=== PATIENT | female | born 1980 | race Caucasian/White ===

== ENCOUNTER 2018-06-04 01:02 | Inpatient (IN) | payer BC, OTHER ==
[2018-06-04] VITALS (14 sets, daily range): BP systolic 91–116; BP diastolic 46–64
[~2018-06-04] VITALS: Ht 152.4 cm; Wt 54.0 kg
[2018-06-04] MEDS ORDERED: ONDA4TAB7 PO (01:22)
--- NOTE | 2018-06-04 01:24 | ED.ADGEN ---
Past History Past Medical History: Diabetes Past Surgical History: Alcohol Use: None Drug Use: None Adult General Chief Complaint Chief Complaint vomiting HPI HPI 38 years old female who is insulin-dependent diabetic presented to the emergency department with vomiting started yesterday her son was diagnosed with influenza, she stated that 24 hours after he was diagnosed she started vomiting no diarrhea no fever no chills complaining of generalized body ache Review of Systems Review of Systems Constitutional: Denies fever or chills [] Eyes: Denies change in visual acuity, redness, or eye pain [] HENT: Denies nasal congestion or sore throat [] Respiratory: Denies cough or shortness of breath [] Cardiovascular: No additional information not addressed in HPI [] GI: Denies abdominal pain, bloody stools or diarrhea [] : Denies dysuria or hematuria [] All other systems were reviewed and found to be within normal limits, except as documented in this note. Current Medications Current Medications Current Medications Medications (Trade) Dose Ordered Sig/Fox Start Time Stop Time Status Last Admin Dose Admin Insulin Glargine (Lantus) 300 units STK-MED ONCE 06/04/18 02:07 06/04/18 02:08 DC Insulin Human Regular (HumuLIN R VIAL) 10 unit 1X ONCE 06/04/18 01:45 06/04/18 01:47 DC 06/04/18 01:40 10 UNIT Ondansetron HCl (Zofran) 4 mg 1X ONCE 06/04/18 02:00 06/04/18 02:01 DC 06/04/18 01:24 4 MG Sodium Chloride 1,000 ml @ 1,000 mls/hr 1X ONCE 06/04/18 02:00 06/04/18 02:59 06/04/18 01:26 1,000 MLS/HR Allergies Allergies Allergies Coded Allergies Type Severity Reaction Last Updated Verified ciprofloxacin Allergy Intermediate 06/04/18 Yes Physical Exam Physical Exam Constitutional: Well developed, well nourished, no acute distress, non-toxic appearance. [] HENT: Normocephalic, atraumatic, bilateral external ears normal, oropharynx moist, no oral exudates, nose normal. [] Eyes: PERRLA, EOMI, conjunctiva normal, no discharge. [] Neck: Normal range of motion, no tenderness, supple, no stridor. [] Cardiovascular:Heart rate regular rhythm, no murmur [] Lungs & Thorax: Bilateral breath sounds clear to auscultation [] Abdomen: Bowel sounds normal, soft, no tenderness, no masses, no pulsatile masses. [] Skin: Warm, dry, no erythema, no rash. [] Current Patient Data Vital Signs Vital Signs Date Time Temp Pulse Resp B/P (MAP) Pulse Ox O2 Delivery O2 Flow Rate FiO2 06/04/18 02:04 98 26 145/89 (107) 98 Room Air 06/04/18 01:13 97.2 Lab Results Laboratory Tests Test 06/04/18 01:22 06/04/18 01:30 06/04/18 02:23 Glucose (Fingerstick) 585 mg/dL (70-99) *H 486 mg/dL (70-99) H White Blood Count 12.2 x10^3/uL (4.0-11.0) H Red Blood Count 5.63 x10^6/uL (3.50-5.40) H Hemoglobin 16.7 g/dL (12.0-15.5) H Hematocrit 50.5 % (36.0-47.0) H Mean Corpuscular Volume 90 fL (79-100) Mean Corpuscular Hemoglobin 30 pg (25-35) Mean Corpuscular Hemoglobin Concent 33 g/dL (31-37) Red Cell Distribution Width 13.4 % (11.5-14.5) Platelet Count 375 x10^3/uL (140-400) Sodium Level 136 mmol/L (136-145) Potassium Level 5.1 mmol/L (3.5-5.1) Chloride Level 96 mmol/L (98-107) L Carbon Dioxide Level 8 mmol/L (21-32) *L Anion Gap 32 (6-14) H Blood Urea Nitrogen 23 mg/dL (7-20) H Creatinine 1.5 mg/dL (0.6-1.0) H Estimated GFR (Cockcroft-Gault) 38.7 BUN/Creatinine Ratio 15 (6-20) Glucose Level 596 mg/dL (70-99) *H Calcium Level 9.4 mg/dL (8.5-10.1) Total Bilirubin 0.6 mg/dL (0.2-1.0) Aspartate Amino Transferase (AST) 18 U/L (15-37) Alanine Aminotransferase (ALT) 25 U/L (14-59) Alkaline Phosphatase 118 U/L (46-116) H Total Protein 8.7 g/dL (6.4-8.2) H Albumin 4.5 g/dL (3.4-5.0) Albumin/Globulin Ratio 1.1 (1.0-1.7) EKG EKG [] Radiology/Procedures Radiology/Procedures [] Course & Med Decision Making Course & Med Decision Making Pertinent Labs and Imaging studies reviewed. (See chart for details) [] Final Impression Final Impression [] Problems: (1) Vomiting Qualifiers: Qualified Codes: R11.2 - Nausea with vomiting, unspecified (2) DKA (diabetic ketoacidoses) Qualifiers: Qualified Codes: E11.10 - Type 2 diabetes mellitus with ketoacidosis without coma Dragon Disclaimer Dragon Disclaimer This electronic medical record was generated, in whole or in part, using a voice recognition dictation system. JAZZMINE PIERRE MD Jun 04, 2018 01:24
[2018-06-04] MEDS ORDERED: INSULIN REGULAR 100 UNIT/ML 3ML VIAL. IV ONE (01:45)
[2018-06-04] MEDS ORDERED: ONDANSETRON PF 4 MG/2 ML VIAL. IV ONE (02:00)
[2018-06-04] MEDS ORDERED: IV NORMAL SALINE 1,000ML 1,000 ML IV ONE ×3 (02:00→03:00)
[2018-06-04] MEDS ORDERED: INSULIN GLARGINE 300 UNITS/3 ML INSULN.PEN. SQ ONE (02:07)
[2018-06-04 02:09] LABS: HEMATOCRIT 50.5 % (36.0-47.0); HEMOGLOBIN 16.7 g/dL (12.0-15.5); RED BLOOD COUNT 5.63 x10^6/uL (3.50-5.40); RED CELL DISTRIBUTION WIDTH 13.4 % (11.5-14.5); WHITE BLOOD COUNT 12.2 x10^3/uL (4.0-11.0)
[2018-06-04 02:17] LABS: ALBUMIN 4.5 g/dL (3.4-5.0); ALBUMIN/GLOBULIN RATIO 1.1 (1.0-1.7); CALCIUM 9.4 mg/dL (8.5-10.1); CREATININE 1.5 mg/dL (0.6-1.0); GFR 38.7; POTASSIUM 5.1 mmol/L (3.5-5.1); TOTAL BILIRUBIN 0.6 mg/dL (0.2-1.0); TOTAL PROTEIN 8.7 g/dL (6.4-8.2)
[2018-06-04 02:35] LABS: INFLUENZA A PATIENT POSITIVE (NEGATIVE); INFLUENZA B PATIENT NEGATIVE (NEGATIVE)
[2018-06-04] MEDS ORDERED: 0.9 % SODIUM CHLORIDE 150ML 150 ML ONE (02:39)
[2018-06-04] MEDS: ONDANSETRON PF 4 MG/2 ML VIAL. IV PRN ×2 (02:54→08:38)
[2018-06-04] MEDS ORDERED: INSULIN REGULAR VIAL 150 UNIT in 0.9 % SODIUM CHLORIDE 150ML 150 ML IV ONE (03:00)
[2018-06-04] MEDS ORDERED: IV NORMAL SALINE 1,000ML 1,000 ML IV SCH (04:00)
[2018-06-04 04:54] LABS: BILIRUBIN,URINE NEG (NEG); CLARITY,URINE CLEAR; COLOR,URINE YELLOW; GLUCOSE,URINE 500 mg/dL (NEG)
[2018-06-04 04:55] LABS: BACTERIA,URINE 0 /HPF (0-FEW); NITRITE,URINE NEG (NEG); SQUAMOUS EPITHELIAL CELL,UR OCC /LPF; UROBILINOGEN,URINE 0.2 mg/dL (0.2 mg/dL); WBC,URINE OCC /HPF (0-4)
[2018-06-04] MEDS ORDERED: INSU100I32 SQ (05:44)
[2018-06-04] MEDS ORDERED: METF500T9 PO (05:44)
[2018-06-04 07:34] LABS: ALBUMIN 3.1 g/dL (3.4-5.0); ALBUMIN/GLOBULIN RATIO 1.1 (1.0-1.7); CALCIUM 7.6 mg/dL (8.5-10.1); CREATININE 0.8 mg/dL (0.6-1.0); GFR 79.9; POTASSIUM 3.8 mmol/L (3.5-5.1); TOTAL BILIRUBIN 0.3 mg/dL (0.2-1.0); TOTAL PROTEIN 5.9 g/dL (6.4-8.2)
[2018-06-04 07:38] LABS: BASO % 0 % (0-3); EOS % 0 % (0-3); HEMOGLOBIN 13.1 g/dL (12.0-15.5); LYMPH % 11 % (24-48); MEAN CORPUSCULAR HEMOGLOBIN 30 pg (25-35); MEAN CORPUSCULAR HGB CONC 35 g/dL (31-37); MEAN CORPUSCULAR VOLUME 85 fL (79-100); MONO # 0.6 x10^3/uL (0.0-1.1); MONO % 8 % (0-9); NEUT # 6.9 x10^3uL (1.8-7.7); NEUT % 81 % (31-73); PLATELET COUNT 236 x10^3/uL (140-400); RED BLOOD COUNT 4.38 x10^6/uL (3.50-5.40); RED CELL DISTRIBUTION WIDTH 12.8 % (11.5-14.5); WHITE BLOOD COUNT 8.5 x10^3/uL (4.0-11.0)
[2018-06-04] MEDS ORDERED: POTASSIUM CL 20MEQ D5-0.45NACL 1,000 ML IV SCH (08:00)
[2018-06-04] MEDS: ACETAMINOPHEN 325 MG TABLET PO PRN ×2 (08:38→18:36)
[2018-06-04] MEDS ORDERED: IPRATRPIUM/ALBUTEROL 0.5/2.5MG 3 ML NEBU. ONE (09:10)
[2018-06-04] MEDS ORDERED: IPRATRPIUM/ALBUTEROL 0.5/2.5MG 3 ML NEBU. NEB SCH (09:15)
[2018-06-04 14:32] LABS: CREATININE 0.8 mg/dL (0.6-1.0); GFR 79.9; POTASSIUM 3.3 mmol/L (3.5-5.1)
[2018-06-04] MEDS: POTASSIUM CL 40MEQ D5-0.45NACL 1,000 ML IV SCH ×2 (15:12→22:46)
--- NOTE | 2018-06-04 19:11 | HP ---
ADMIT DATE: 06/04/2018 HISTORY OF PRESENT ILLNESS: The patient is a 38-year-old female patient with diabetes mellitus about 3 years ago, started on oral hypoglycemic for about 6 months and then started on insulin, who came to the Emergency Room, complaining of recurrent bouts of nausea and vomiting. Her son was diagnosed with influenza. She stated ____ she started vomiting; however, she denied any diarrhea, abdominal pain, but did complain of generalized aches and pains. She was investigated in the Emergency Room, was found to be in diabetic ketoacidosis. Her blood sugar was 596 with a anion gap of 32. She has also acute kidney injury. Creatinine is 1.5. She was admitted, her influenza A was positive and B was negative. Urinalysis showed a large amount of glucose and large amount of ketones; however, it was negative for nitrite and leukocyte esterase. There are no wbc's and no bacteria and she was admitted the diabetic ketoacidosis and influenza A. She was started on IV fluid and insulin drip and she will be started also on Tamiflu. We will continue to monitor her electrolytes as well as blood sugar and we will resume her medication once she is stabilized. PAST SURGICAL HISTORY: Significant for one normal vaginal delivery and one . ALLERGIES: She is allergic TO CIPRO AND FLAGYL. MEDICATIONS: She is currently on metformin 1000 mg once a day at bedtime and Basaglar KwikPen 25 units subcutaneously. She is also ondansetron for Zofran 4 mg every 8 hours. FAMILY HISTORY: She has one sister older and healthy. Her father is still alive at age 73, has diabetes mellitus and mother at age 70 because of bone cancer. SOCIAL HISTORY: She is , has a son and a daughter. She never smoked, does not drink alcohol or recreational drugs. 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 PHYSICAL EXAMINATION: GENERAL: On arrival to the Emergency Room, she was clearly tachypneic, but no pallor, jaundice, cyanosis, or thyromegaly. No jugular venous distension. No limb edema. VITAL SIGNS: Her heart rate was 107, blood pressure was 145/89, temperature was 97.2, respiratory rate 26 and oxygen saturation was 98%. HEAD, EYES, EARS, NOSE, AND THROAT: Showed normocephalic, atraumatic. NECK: Supple. HEART: Showed normal first and second sounds. No gallop, rub or murmur. CHEST: Clear to auscultation. No crepitation or rhonchi. ABDOMEN: Distended, soft, nontender. NEUROLOGIC: She was awake, alert, responding appropriately. Cranial nerves intact. EXTREMITIES: She moves extremities without difficulty. LABORATORY DATA: On admission showed that her white cell count was 12,200, hemoglobin 16.7, hematocrit 50.5, MCV 90 and platelet count 375,000. Her chemistry showed a serum sodium of 136, potassium 5.1, chloride 96, bicarbonate 8, anion gap of 32, BUN 23, creatinine 1.5, estimated GFR was 38 mL per minute. Her glucose 596, calcium was 9.4. Total bilirubin, AST, ALT were normal. Alkaline phosphatase slightly elevated. Total protein was 8.7, albumin was 4.5. Urinalysis showed the urine was yellow, clear with a pH of 5, specific gravity of 1.020. Small amount of protein, large amount of glucose, large amount of ketones, large amount of blood, negative for nitrite and leukocyte esterase. There were only 6-10 rbc's, no wbc's, and no bacteria. Her nasal screen for MRSA was negative; however, her influenza A was positive and her influenza B was negative. ADMISSION DIAGNOSES: Influenza A, Diabetic ketoacidosis, acute kidney injury, and hyperkalemia. ARCHANA YOUNG MD DR: ALICIA/maicol JOB#: [id number] / [id number]
[2018-06-04] MEDS: OSELTAMIVIR 75 MG CAPSULE PO SCH (20:38)
[2018-06-04] MEDS ORDERED: INSULIN GLARGINE 300 UNITS/3 ML INSULN.PEN. SQ SCH (21:00)
[2018-06-04] MEDS ORDERED: INSULIN REGULAR VIAL 150 UNIT in 0.9 % SODIUM CHLORIDE 150ML 150 ML IV PRN (21:15)
[2018-06-05 01:17] VITALS: BP 100/56
[2018-06-05 03:03] VITALS: BP 104/60
[2018-06-05 04:51] VITALS: BP 107/68
[2018-06-05] MEDS ORDERED: ONDANSETRON PF 4 MG/2 ML VIAL. IV PRN (05:15)
[2018-06-05] MEDS ORDERED: ACETAMINOPHEN 325 MG TABLET PO PRN (05:15)
[2018-06-05] MEDS: POTASSIUM CL 40MEQ D5-0.45NACL 1,000 ML IV SCH (05:47)
[2018-06-05 06:34] LABS: BASO % 0 % (0-3); EOS % 0 % (0-3); HEMATOCRIT 33.8 % (36.0-47.0); HEMOGLOBIN 11.8 g/dL (12.0-15.5); LYMPH # 0.7 x10^3/uL (1.0-4.8); LYMPH % 9 % (24-48); MEAN CORPUSCULAR HEMOGLOBIN 30 pg (25-35); MEAN CORPUSCULAR HGB CONC 35 g/dL (31-37); MEAN CORPUSCULAR VOLUME 85 fL (79-100); MONO # 0.5 x10^3/uL (0.0-1.1); MONO % 7 % (0-9); NEUT # 6.3 x10^3uL (1.8-7.7); NEUT % 84 % (31-73); PLATELET COUNT 221 x10^3/uL (140-400); RED BLOOD COUNT 3.99 x10^6/uL (3.50-5.40); RED CELL DISTRIBUTION WIDTH 13.2 % (11.5-14.5); WHITE BLOOD COUNT 7.5 x10^3/uL (4.0-11.0)
[2018-06-05 06:45] LABS: ALBUMIN 2.8 g/dL (3.4-5.0); CREATININE 0.6 mg/dL (0.6-1.0); GFR 111.3; POTASSIUM 3.9 mmol/L (3.5-5.1); TOTAL BILIRUBIN 0.3 mg/dL (0.2-1.0); TOTAL PROTEIN 5.5 g/dL (6.4-8.2)
[2018-06-05 07:03] VITALS: BP 100/63
[2018-06-05] MEDS ORDERED: INSULIN LISPRO 300 UNITS/3 ML INSULN.PEN. SQ PRN (07:30)
[2018-06-05] MEDS ORDERED: DEXTROSE 50% 25 GM / 50ML DISP.SYRIN. IV PRN (07:30)
[2018-06-05] MEDS ORDERED: IV NORMAL SALINE 1,000ML 1,000 ML IV SCH (07:45)
[2018-06-05] MEDS: OSELTAMIVIR 75 MG CAPSULE PO SCH (08:00)
[2018-06-05 10:45] VITALS: BP 107/68
--- NOTE | 2018-06-05 14:39 | DS ---
DATE OF DISCHARGE: 06/05/2018 HOSPITAL COURSE: The patient is a 38-year-old female patient, who was admitted yesterday with a complaint of recurrent bouts of nausea, vomiting. She was apparently seen in the Emergency Room and was found to be extremely hyperglycemic with a very high anion gap of 32, her creatinine has risen to 1.5 mg/dL. Her influenza A was positive, B was negative. Urinalysis showed large amount of glucose, large amount of ketones; however, was negative for nitrite and leukocyte esterase. The patient was started on IV fluid and insulin drip. The patient did very well, has had no further episodes of nausea and vomiting. Her blood sugar has stabilized. Her white cell count came down from 12,000-7500, her anion gap has also improved from 32 down to 11. She was able to eat and drink, and keep all her foods in without difficulty and as she stabilized, the decision was made to discharge her home to continue on her insulin at bedtime as well as metformin and we advised her to continue also on Humalog before meals. We provided her with insulin sliding scale and a prescription for Humalog insulin. PHYSICAL EXAMINATION: GENERAL: On examining her this afternoon, she looked well and was clearly in no apparent respiratory distress. No pallor, jaundice, cyanosis or thyromegaly. No jugular venous distension. No limb edema. VITAL SIGNS: Her heart rate was 92, blood pressure was 100/63, temperature was 99.8, respiratory rate was 18 and oxygen saturation was 98%. The rest of clinical examination is stable, has not really changed. Her intake over the last 24 hours was 2400, no output was recorded. LABORATORY DATA: Showed a serum sodium 138, potassium 3.9, chloride 107, bicarbonate 20, anion gap of 11, BUN 4, creatinine 0.6, estimated GFR was 111. Her blood glucose was 238, calcium was 8. Total bilirubin, AST, ALT, alkaline phosphatase were normal. Total protein was 5.5, albumin was 2.8. White cell count was down to 7500, hemoglobin 12, hematocrit 34, MCV 85 and platelet count of 221,000. DISCHARGE MEDICATIONS: She was discharged home to continue Basaglar KwikPen insulin 25 units at bedtime. She is on metformin 1000 mg at bedtime, ondansetron 4 mg every 8 hours. She was also started on Humalog insulin as insulin sliding scale before meals. She was given an insulin sliding scale to use. FINAL DISCHARGE DIAGNOSES: 1. Influenza A. 2. Diabetic ketoacidosis. 3. Type 1 diabetes mellitus. ARCHANA YOUNG MD DR: ALICIA/maicol JOB#: [id number] / [id number]
[2018-06-05] MEDS ORDERED: INSULIN GLARGINE 300 UNITS/3 ML INSULN.PEN. SQ SCH (21:00)
[2018-06-05] MEDS ORDERED: metFORMIN XR 500 MG TAB.ER.24H PO SCH (21:00)
== END 2018-06-05 12:54 | disposition home or self-care (01) | DRG 637 ==
LOC: ER 01:02 → ICU 02:30
PROVIDERS: ADMIT Internal Medicine; ATTEND Internal Medicine
DX: E10.10 Type 1 diabetes mellitus with ketoacidosis without coma (principal); N17.0 Acute kidney failure with tubular necrosis; E87.5 Hyperkalemia; J10.1 Influenza due to other identified influenza virus with other respiratory manifestations; Z79.4 Long term (current) use of insulin; Z83.3 Family history of diabetes mellitus; Z88.8 Allergy status to other drugs, medicaments and biological substances
CPT/HCPCS: 36415; 80048; 80053; 81001; 82947; 85025; 85027; 87641; 87804; 94640; 96361; 96365; 96372; 96375; 96376; J1815; J2405; J7042; J7620; 99285-25; J7030

== ENCOUNTER → 2018-11-06 | Outpatient (CLI) | payer BC ==
[~2018-11-06] MED LIST: INSU100I32 SQ; METF500T9 PO; ONDA4TAB7 PO
--- NOTE | 2018-11-07 13:00 | RAD ---
DATE: 11/07/2018 EXAM: MAMMO SHAKEEL SCREENING BILATERAL HISTORY: Routine screening. COMPARISON: None This study was interpreted with the benefit of Computerized Aided Detection (CAD). FINDINGS: Breast Density: HETERO The breast parenchyma Is heterogeneously dense, which could reduce sensitivity of mammography. Breast parenchyma level C. The skin and nipples are within normal limits. No suspicious calcifications, spiculated mass or area of architectural distortion. IMPRESSION: No mammographic evidence of malignancy. BI-RADS CATEGORY: 2 BENIGN FINDING(S) RECOMMENDED FOLLOW-UP: 12M 12 MONTH FOLLOW-UP PQRS compliance statement: Patient information was entered into a reminder system with a target due date for the next mammogram. Mammography is a sensitive method for finding small breast cancers, but it does not detect them all and is not a substitute for careful clinical examination. A negative mammogram does not negate a clinically suspicious finding and should not result in delay in biopsying a clinically suspicious abnormality. "Our facility is accredited by the [employer] Mammography Program."
== END | disposition home or self-care (01) ==
LOC: MAMMO 08:41
PROVIDERS: ATTEND Physician Assistant Medical
DX: Z12.31 Encounter for screening mammogram for malignant neoplasm of breast (principal)
CPT/HCPCS: 77063; 77067

== ENCOUNTER → 2021-04-04 | Outpatient (CLI) | payer BC ==
[~2021-04-04] MED LIST changes: +METF-658 PO; -METF500T9 PO
--- NOTE | 2021-04-04 12:16 | RAD ---
AP and Lateral Views of the Chest 04/04/2021 9:54 AM Comparison: Chest radiograph June 08, 2015 Findings: There is no focal consolidation or infiltrate identified. The cardiomediastinal silhouette is within normal limits. There is no evidence of pneumothorax or pleural effusion. No acute osseous a bnormalities are identified. Impression: No evidence of acute cardiopulmonary process. Electronically signed by: Ruiz Arciniega MD (04/04/2021 12:13 PM) [id number]
== END ==
LOC: RAD 09:43
PROVIDERS: ATTEND Physician Assistant Medical
DX: J45.909 Unspecified asthma, uncomplicated (principal)
CPT/HCPCS: 71046